=== PATIENT | female | born 1990 | race Caucasian/White ===

== ENCOUNTER 2019-12-06 19:44 | Emergency (ER) | payer OTHER ==
[~2019-12-06] VITALS: Ht 170.1 cm; Wt 63.5 kg
[~2019-12-06 19:44] MED LIST: DIFLUCAN100 MG PO; FERATE27 MG PO; FLEXERIL10 MG PO; MOTRIN800 MG PO; MYCELEX TROCHE10 MG MM; VOLTAREN50 M1 PO
[2019-12-06] MEDS ORDERED: CEPHALEXIN500 M1 PO (20:31)
== END 2019-12-06 20:35 | disposition home or self-care (01) ==
LOC: ED 19:44
DX: T63.451A Toxic effect of venom of hornets, accidental (unintentional), initial encounter (principal); L08.9 Local infection of the skin and subcutaneous tissue, unspecified; Z88.1 Allergy status to other antibiotic agents; Z79.899 Other long term (current) drug therapy; Y92.89 Other specified places as the place of occurrence of the external cause

== ENCOUNTER 2020-01-27 18:05 | Emergency (ER) | payer OTHER ==
[~2020-01-27] VITALS: Ht 170.1 cm; Wt 63.5 kg
[~2020-01-27 18:05] MED LIST changes: +CEPHALEXIN500 M1 PO
[2020-01-27 19:02] LABS: BASO % 0.7 % (0.0-1.0); EOS # 0.1 10*3/uL (0.0-0.4); EOS % 1.5 % (1.0-4.0); HEMATOCRIT 32.9 % (37.0-47.0); LYMPH # 1.7 10*3/uL (1.3-4.4); LYMPH % 29.1 % (27.0-41.0); MEAN CELL VOLUME 65.5 fl (81.0-99.0); MEAN CORPUSCULAR HGB 17.7 pg (27.0-31.0); MEAN CORPUSCULAR HGB CONC 27.1 g/dl (33.0-37.0); MEAN PLATELET VOLUME 9.1 fl (9.6-12.3); MONO # 0.6 10*3/uL (0.1-1.0); MONO % 9.7 % (3.0-9.0); NEUT # 3.5 10*3/uL (2.3-7.9); NEUT % 58.8 % (47.0-73.0); PLATELET COUNT AUTOMATED 339 10*3/uL (130-400); RED BLOOD COUNT 5.02 10*6/uL (4.10-5.10); RED CELL DISTRI WIDTH 19.5 % (0-14.5)
[2020-01-27 19:14] LABS: BILIRUBIN Negative; BLOOD 3+ (Negative); CLARITY Cloudy (Clear); COLOR Yellow (Yellow); GLUCOSE Negative; KETONE Negative
[2020-01-27 19:15] LABS: LEUKO ESTERASE 1+ (Negative); NITRITE Negative (Negative)
[2020-01-27 19:19] LABS: BACTERIA 1+; RBC TNTC rbc/hpf (0-2)
[2020-01-27 19:31] LABS: ALBUMIN 3.5 gm/dl (3.1-4.5); ALKALINE PHOSPHATASE 80 U/L (45-117); BUN 7 mg/dl (7-24); CHLORIDE 106 mmol/L (98-107); CREATININE 0.61 mg/dL (0.55-1.02); POTASSIUM 4.1 mmol/L (3.5-5.1); SGOT/AST 14 IU/L (3-35); SODIUM 138 mmol/L (136-145)
[2020-01-27 19:41] LABS: SGPT/ALT 20 U/L (12-78)
== END 2020-01-27 20:15 | disposition home or self-care (01) ==
LOC: ED 18:05
PROVIDERS: Nurse Practitioner Family
DX: O20.0 Threatened abortion (principal); Z3A.01 Less than 8 weeks gestation of pregnancy; Z88.1 Allergy status to other antibiotic agents; Z79.899 Other long term (current) drug therapy

== ENCOUNTER → 2020-04-05 | Outpatient (CLI) | payer OTHER | END | disposition home or self-care (01) | LOC: US 14:26 | PROVIDERS: ATTEND Nurse Practitioner Women's Health | DX: Z34.81 Encounter for supervision of other normal pregnancy, first trimester (principal); Z3A.10 10 weeks gestation of pregnancy ==

== ENCOUNTER 2020-04-08 21:11 | Emergency (ER) | payer OTHER ==
[~2020-04-08] VITALS: Ht 167.6 cm; Wt 47.6 kg
[2020-04-08 21:58] LABS: BASO % 0.5 % (0.0-1.0); EOS % 0.2 % (1.0-4.0); HEMATOCRIT 30.2 % (37.0-47.0); LYMPH % 18.5 % (27.0-41.0); MEAN CELL VOLUME 67.1 fl (81.0-99.0); MEAN CORPUSCULAR HGB 18.4 pg (27.0-31.0); MEAN CORPUSCULAR HGB CONC 27.5 g/dl (33.0-37.0); MEAN PLATELET VOLUME 8.7 fl (9.6-12.3); MONO # 0.7 10*3/uL (0.1-1.0); MONO % 13.1 % (3.0-9.0); NEUT # 3.8 10*3/uL (2.3-7.9); NEUT % 67.5 % (47.0-73.0); PLATELET COUNT AUTOMATED 307 10*3/uL (130-400); WHITE BLOOD COUNT 5.6 10*3/uL (4.8-10.8)
[2020-04-08 22:17] LABS: ALBUMIN 3.1 gm/dl (3.1-4.5); ALKALINE PHOSPHATASE 56 U/L (45-117); BUN 6 mg/dl (7-24); CHLORIDE 105 mmol/L (98-107); CREATININE 0.43 mg/dL (0.55-1.02); POTASSIUM 3.5 mmol/L (3.5-5.1); SGOT/AST 24 IU/L (3-35); SGPT/ALT 25 U/L (12-78); SODIUM 136 mmol/L (136-145); TOTAL PROTEIN 7.4 gm/dL (6.4-8.2)
[2020-04-08 22:22] LABS: BILIRUBIN Negative (Negative); BLOOD Negative (Negative); CLARITY Clear (Clear); COLOR Yellow (Yellow); GLUCOSE Negative (Negative); KETONE Negative (Negative); LEUKO ESTERASE Trace (Negative); NITRITE Negative (Negative); PH 6.5 (4.5-8.0)
[2020-04-08 22:35] LABS: EPITHELIAL CELLS 16-20; RBC 0-2 rbc/hpf (0-2)
== END 2020-04-09 00:29 | disposition home or self-care (01) ==
LOC: ED 21:11
PROVIDERS: Nurse Practitioner Family
DX: Z34.91 Encounter for supervision of normal pregnancy, unspecified, first trimester (principal); Z3A.10 10 weeks gestation of pregnancy; Z88.8 Allergy status to other drugs, medicaments and biological substances; Z79.899 Other long term (current) drug therapy

== ENCOUNTER 2020-04-22 12:51 | Emergency (ER) | payer OTHER ==
[~2020-04-22] VITALS: Ht 170.1 cm; Wt 65.8 kg
[2020-04-22 13:43] LABS: BILIRUBIN Negative (Negative); BLOOD Trace-Lysed (Negative); CLARITY Clear (Clear); COLOR Yellow (Yellow); GLUCOSE Negative (Negative); KETONE Negative (Negative); LEUKO ESTERASE 3+ (Negative); NITRITE Negative (Negative); SPECIFIC GRAVITY <= 1.005 (1.001-1.030); UROBILINOGEN 0.2 E.U./dl (0.0-1.0)
[2020-04-22 13:52] LABS: BACTERIA 1+
[2020-04-22] MEDS ORDERED: CEPHALEXIN500 M1 PO (13:53)
== END 2020-04-22 14:30 | disposition home or self-care (01) ==
LOC: ED 12:51
PROVIDERS: Nurse Practitioner Family
DX: O23.41 Unspecified infection of urinary tract in pregnancy, first trimester (principal); Z3A.12 12 weeks gestation of pregnancy; Z88.8 Allergy status to other drugs, medicaments and biological substances; Z79.899 Other long term (current) drug therapy

== ENCOUNTER 2020-09-03 22:32 | Emergency (ER) | payer OTHER ==
[~2020-09-03] VITALS: Ht 170.1 cm; Wt 72.1 kg
[2020-09-03] MEDS ORDERED: VENOFER100 MG/5 M IV (22:47)
[2020-09-03] MEDS ORDERED: PRENATAL ONE T1 EAC1 PO (22:47)
== END 2020-09-04 02:05 | disposition short-term general hospital (02) ==
LOC: ED 22:32
DX: O62.8 Other abnormalities of forces of labor (principal); Z3A.32 32 weeks gestation of pregnancy; Z88.8 Allergy status to other drugs, medicaments and biological substances; Z79.899 Other long term (current) drug therapy; Z90.49 Acquired absence of other specified parts of digestive tract

== ENCOUNTER 2021-12-12 18:10 | Emergency (ER) | payer OTHER ==
[~2021-12-12] VITALS: Ht 170.1 cm; Wt 59.0 kg
[~2021-12-12 18:10] MED LIST changes: +PRENATAL ONE T1 EAC1 PO; +VENOFER100 MG/5 M IV
[2021-12-12 18:43] LABS: BILIRUBIN Negative (Negative); BLOOD 2+ (Negative); CLARITY Turbid (Clear); COLOR Yellow (Yellow); GLUCOSE Negative (Negative); KETONE Negative (Negative); LEUKO ESTERASE 3+ (Negative); NITRITE Negative (Negative); SPECIFIC GRAVITY 1.015 (1.001-1.030)
[2021-12-12 19:03] LABS: WBC TNTC wbc/hpf (0-5)
[2021-12-12 19:04] LABS: BACTERIA 2+
[2021-12-12 19:09] LABS: BASO % 0.4 % (0.0-1.0); EOS % 0.3 % (1.0-4.0); HEMATOCRIT 38.9 % (37.0-47.0); LYMPH # 1.5 10*3/uL (1.3-4.4); MEAN CORPUSCULAR HGB CONC 33.7 g/dl (33.0-37.0); MONO # 0.5 10*3/uL (0.1-1.0); MONO % 5.7 % (3.0-9.0); NEUT % 77.3 % (47.0-73.0); PLATELET COUNT AUTOMATED 223 10*3/uL (130-400); RED BLOOD COUNT 4.37 10*6/uL (4.10-5.10); RED CELL DISTRI WIDTH 12.6 % (0-14.5); WHITE BLOOD COUNT 9.1 10*3/uL (4.8-10.8)
[2021-12-12 19:28] LABS: ALKALINE PHOSPHATASE 55 U/L (45-117); BUN 10 mg/dl (7-24); CHLORIDE 108 mmol/L (98-107); CREATININE 0.46 mg/dL (0.55-1.02); SGOT/AST 14 IU/L (3-35); SGPT/ALT 19 U/L (12-78); SODIUM 137 mmol/L (136-145); TOTAL PROTEIN 7.6 gm/dL (6.4-8.2)
[2021-12-12] MEDS ORDERED: CEFUROXIME AXE500 MG PO ×2 (20:02)
== END 2021-12-12 20:23 | disposition home or self-care (01) ==
LOC: ED 18:10
PROVIDERS: Physician Assistant
DX: O23.91 Unspecified genitourinary tract infection in pregnancy, first trimester (principal); Z88.1 Allergy status to other antibiotic agents; Z3A.01 Less than 8 weeks gestation of pregnancy; Z79.899 Other long term (current) drug therapy; Z90.89 Acquired absence of other organs; Z90.49 Acquired absence of other specified parts of digestive tract

== ENCOUNTER 2022-10-05 01:08 | Emergency (ER) | payer OTHER ==
[~2022-10-05] VITALS: Ht 170.1 cm; Wt 70.3 kg
[~2022-10-05 01:08] MED LIST changes: +CEFUROXIME AXE500 MG PO
[2022-10-05] MEDS ORDERED: PRENATAL VITAM1 EAC4 PO (01:18)
== END 2022-10-05 02:29 | disposition left against medical advice (07) ==
LOC: ED 01:08
DX: O26.893 Other specified pregnancy related conditions, third trimester (principal); R10.2 Pelvic and perineal pain; M54.50 Low back pain, unspecified; Z88.1 Allergy status to other antibiotic agents; Z79.899 Other long term (current) drug therapy; Z90.49 Acquired absence of other specified parts of digestive tract; Z3A.36 36 weeks gestation of pregnancy

== ENCOUNTER 2022-12-10 06:31 | Emergency (ER) | payer OTHER ==
[~2022-12-10] VITALS: Ht 170.1 cm; Wt 61.3 kg
[~2022-12-10 06:31] MED LIST changes: +PRENATAL VITAM1 EAC4 PO
[2022-12-10] MEDS ORDERED: AMOX-CLAV 875-1 EACH PO (08:09)
== END 2022-12-10 08:25 | disposition home or self-care (01) ==
LOC: ED 06:31
DX: L03.012 Cellulitis of left finger (principal); N39.0 Urinary tract infection, site not specified; D64.9 Anemia, unspecified; Z88.1 Allergy status to other antibiotic agents; Z90.89 Acquired absence of other organs; Z90.49 Acquired absence of other specified parts of digestive tract

== ENCOUNTER 2023-03-30 14:48 | Emergency (ER) | payer OTHER ==
[~2023-03-30] VITALS: Ht 170.1 cm; Wt 59.0 kg
[~2023-03-30 14:48] MED LIST changes: +AMOX-CLAV 875-1 EACH PO
[2023-03-30] MEDS ORDERED: MELOXICAM15 MG PO (16:47)
== END 2023-03-30 16:52 | disposition home or self-care (01) ==
LOC: ED 14:48
DX: S92.501A Displaced unspecified fracture of right lesser toe(s), initial encounter for closed fracture (principal); D64.9 Anemia, unspecified; Z88.8 Allergy status to other drugs, medicaments and biological substances; Z90.49 Acquired absence of other specified parts of digestive tract; Z90.89 Acquired absence of other organs; W10.9XXA Fall (on) (from) unspecified stairs and steps, initial encounter; Y93.89 Activity, other specified; Y92.89 Other specified places as the place of occurrence of the external cause; Y99.8 Other external cause status

== ENCOUNTER 2023-05-12 21:12 | Emergency (ER) | payer OTHER ==
[~2023-05-12] VITALS: Ht 170.1 cm; Wt 59.0 kg
[~2023-05-12 21:12] MED LIST changes: +MELOXICAM15 MG PO
== END 2023-05-12 22:30 | disposition left against medical advice (07) ==
LOC: ED 21:12
DX: M54.50 Low back pain, unspecified (principal); Z53.21 Procedure and treatment not carried out due to patient leaving prior to being seen by health care provider

== ENCOUNTER 2023-05-17 22:23 | Emergency (ER) | payer OTHER ==
[~2023-05-17] VITALS: Ht 170.1 cm; Wt 59.0 kg
[2023-05-18] MEDS ORDERED: MELOXICAM15 MG PO (00:49)
[2023-05-18] MEDS ORDERED: PREDNISONE50 MG PO (00:49)
[2023-05-18] MEDS ORDERED: CYCLOBENZAPRINE10 MG PO (00:49)
== END 2023-05-18 00:59 | disposition home or self-care (01) ==
LOC: ED 22:23
DX: M54.50 Low back pain, unspecified (principal); M62.830 Muscle spasm of back; D64.9 Anemia, unspecified; Z88.8 Allergy status to other drugs, medicaments and biological substances; Z90.49 Acquired absence of other specified parts of digestive tract; Z90.89 Acquired absence of other organs

== ENCOUNTER → 2023-06-22 | Outpatient (CLI) | payer OTHER ==
[~2023-06-22] MED LIST changes: +CYCLOBENZAPRINE10 MG PO; +PREDNISONE50 MG PO
[2023-06-22 14:23] LABS: BASO % 0.7 % (0.0-1.0); EOS # 0.1 10*3/uL (0.0-0.4); EOS % 0.9 % (1.0-4.0); HEMATOCRIT 39.3 % (37.0-47.0); LYMPH # 1.4 10*3/uL (1.3-4.4); LYMPH % 23.7 % (27.0-41.0); MEAN CELL VOLUME 89.3 fl (81.0-99.0); MEAN CORPUSCULAR HGB 28.2 pg (27.0-31.0); MEAN CORPUSCULAR HGB CONC 31.6 g/dl (33.0-37.0); MEAN PLATELET VOLUME 9.3 fl (9.6-12.3); MONO # 0.4 10*3/uL (0.1-1.0); MONO % 7.5 % (3.0-9.0); NEUT # 3.9 10*3/uL (2.3-7.9); PLATELET COUNT AUTOMATED 223 10*3/uL (130-400); RED CELL DISTRI WIDTH 11.9 % (0-14.5); WHITE BLOOD COUNT 5.9 10*3/uL (4.8-10.8)
== END | disposition home or self-care (01) ==
LOC: LAB 14:03
PROVIDERS: Student in an Organized Health Care Education/Training Program; ATTEND Family Medicine
DX: D72.819 Decreased white blood cell count, unspecified (principal)

== ENCOUNTER 2024-05-01 16:56 | Emergency (ER) | payer OTHER ==
[~2024-05-01] VITALS: Ht 170.1 cm; Wt 49.9 kg
[2024-05-01] MEDS ORDERED: Amoxicillin/Clavulanate Pota 875 MG TAB PO ONE (17:40)
[2024-05-01] MEDS ORDERED: AMOX-CLAV 875-1 EACH PO (17:41)
== END 2024-05-01 18:21 | disposition home or self-care (01) ==
LOC: ED 16:56
DX: J02.0 Streptococcal pharyngitis (principal); D64.9 Anemia, unspecified; Z88.1 Allergy status to other antibiotic agents; Z90.89 Acquired absence of other organs; Z90.49 Acquired absence of other specified parts of digestive tract